=== PATIENT | female | born 1980 | race Hispanic/Latino ===

== ENCOUNTER 2022-08-24 05:07 | Observation (INO) | payer OTHER ==
[2022-08-24] MEDS ORDERED: FENTANYL 50 MCG/ML 1 ML VIAL ONE ×8 (05:35→14:59)
[2022-08-24] MEDS ORDERED: Morphine 4 MG/ML VIAL ONE ×2 (06:36→10:22)
[2022-08-24] MEDS ORDERED: CEFAZOLIN 2 GM in Sodium Chloride 0.9% 100 ML IVPB SCH (09:00)
[2022-08-24] MEDS ORDERED: HYDROcodone/Acetaminophen 5/325 mg Tablet PO PRN (09:30)
[2022-08-24] MEDS: Sodium Chloride 0.9% 1,000 ML IV SCH ×3 (10:00→23:24)
[2022-08-24] MEDS ORDERED: Ondansetron PF 4 MG/2 ML Vial SLOW IVP PRN (10:02)
[2022-08-24 10:10] LABS: #Lymphocytes 1.4 thou/uL (1.20-3.40); #Monocytes 1.1 thou/uL (0.11-0.59); #Neutrophils 15.7 thou/uL (1.40-6.50); %Basophils 0.2 % (0.0-1.0); %Eosinophils 0.2 % (0.0-10.0); %Lymphocytes 7.7 % (21.0-51.0); %Monocytes 6.1 % (0.0-10.0); %Neutrophils 85.8 % (42.0-75.0); Hemoglobin 12.8 g/dL (12.0-16.0); Mean Corpuscular HGB CONC 33.6 g/dL (32.0-36.0); Mean Corpuscular Hemoglobin 31.7 pg (27.0-31.0); Mean Corpuscular Volume 94.6 fl (78.0-98.0); Mean Platelet Volume 9.1 fL (7.4-10.4); Platelet Count 266 10x3/uL (130-400); RBC Distribution Width 12.7 % (11.5-14.5); Red Blood Cell (RBC) Count 4.03 mill/uL (4.20-5.40); White Blood Cell (WBC) Count 18.3 10x3/uL (4.8-10.8)
[2022-08-24] MEDS ORDERED: Communication Order-Pharmacy FS SCH (10:15)
[2022-08-24 11:06] LABS: Anion Gap 14 mmol/L (10-20); BUN (Urea Nitrogen) 9 mg/dL (7.0-18.7); Calc. Creatinine Clearance 0 mL/min (70-130); Carbon Dioxide 25 mmol/L (22-29); Chloride 108 mmol/L (98-107); Estimated GFR 113; Glucose 125 mg/dL (70-105); Potassium 4.1 mmol/L (3.5-5.1); Sodium 143 mmol/L (136-145)
[2022-08-24] MEDS ORDERED: fentaNYL PF 100 MCG/2 ML SYRINGE ONE (12:04)
[2022-08-24] MEDS ORDERED: Midazolam HCl 2 mg/2 ml Vial ONE (12:13)
[2022-08-24] MEDS ORDERED: Lidocaine 2% 6 ML SYR ONE (12:31)
[2022-08-24] MEDS ORDERED: Promethazine HCl 25 MG/ML VIAL ONE (12:31)
[2022-08-24] MEDS ORDERED: Phenylephrine 10 MG/ML VIAL ONE (12:33)
[2022-08-24] MEDS ORDERED: PROPOFOL 200 MG/20 ML VIAL ONE (12:33)
[2022-08-24] MEDS ORDERED: Dexamethasone 20 MG/5 ML VIAL ONE (12:33)
[2022-08-24] MEDS ORDERED: Ondansetron PF 4 MG/2 ML Vial ONE (12:33)
[2022-08-24] MEDS ORDERED: Ketorolac Tromethamine 30 MG/ML VIAL ONE (12:33)
[2022-08-24] MEDS ORDERED: Ondansetron HCl/PF 4 MG/2 ML Vial IVP PRN (13:57)
[2022-08-24] MEDS ORDERED: Ketorolac Tromethamine 30 MG/ML VIAL IVP PRN (13:57)
[2022-08-24] MEDS ORDERED: PACU-Morphine 4MG/ML VIAL SLOW IVP PRN (13:57)
[2022-08-24] MEDS ORDERED: HYDROmorphone 2 MG/ML VIAL SLOW IVP PRN (13:57)
[2022-08-24] MEDS ORDERED: Promethazine HCl 25 MG/ML VIAL IVPB PRN (13:57)
[2022-08-24] MEDS ORDERED: Morphine Sulfate 2 MG/ML SYRINGE SLOW IVP PRN (13:57)
[2022-08-24] MEDS ORDERED: Meperidine HCl/PF 25 MG/ML VIAL SLOW IVP PRN (13:57)
[2022-08-24] MEDS ORDERED: Promethazine HCl 25 MG/ML VIAL IM PRN (13:57)
[2022-08-24 15:36] VITALS: BMI 24.7
[2022-08-24] MEDS: HYDROcodone/Acetaminophen 5/325 mg Tablet PO PRN ×2 (18:18→23:24)
[2022-08-24] MEDS: CEFAZOLIN 2 GM in Sodium Chloride 0.9% 100 ML IVPB SCH (20:22)
[2022-08-24] MEDS ORDERED: Morphine 4 MG/ML VIAL SLOW IVP PRN (20:27)
[2022-08-24] MEDS: Ketorolac Tromethamine 30 MG/ML VIAL IVP SCH (21:28)
[2022-08-24] MEDS ORDERED: HYDROmorphone 0.5 MG/0.5 ML SYRINGE SLOW IVP SCH (22:15)
[2022-08-24] MEDS ORDERED: Sodium Chloride 0.9% 500 ML IV SCH (22:15)
[2022-08-25] MEDS: HYDROcodone/Acetaminophen 5/325 mg Tablet PO PRN ×2 (03:26→09:02)
[2022-08-25] MEDS ORDERED: Melatonin 3 MG TAB PO PRN (03:34)
[2022-08-25] MEDS: CEFAZOLIN 2 GM in Sodium Chloride 0.9% 100 ML IVPB SCH (05:08)
[2022-08-25] MEDS: Ketorolac Tromethamine 30 MG/ML VIAL IVP SCH (05:10)
[2022-08-25] MEDS ORDERED: Sertraline 25 MG TAB PO SCH (09:00)
[2022-08-25 09:32] VITALS: BP 98/62; TEMP 98
== END 2022-08-25 10:45 | disposition home or self-care (01) ==
LOC: ERS 05:07 → SDC 10:44 → SJJU 10:45
PROVIDERS: ADMIT Orthopaedic Surgery; ATTEND Orthopaedic Surgery
PROC: 0QBJ0ZZ Excision of Right Fibula, Open Approach (ICD-10-PCS; principal; 2022-08-24)
DX: S82.61XB Displaced fracture of lateral malleolus of right fibula, initial encounter for open fracture type I or II (principal); G47.00 Insomnia, unspecified; R00.0 Tachycardia, unspecified; Z79.899 Other long term (current) drug therapy; W32.0XXA Accidental handgun discharge, initial encounter
CPT/HCPCS: 36415; 71045; 80048; 85025; 96365; 96366; 96374; 96375; 96376; G0378; G0390; J1100; J1170; J1885; J2250; J2270; J2370; J2405; J2550; J2704; J3010; J3490; J7030; J7050